=== PATIENT | male | born 1975 | race African-American/Black ===

== ENCOUNTER 2016-07-16 18:06 | Emergency (ER) | payer OTHER ==
[2016-07-16 18:12] VITALS: BP 137/67; PULSE 62; TEMP 97.9; BMI 24.7
[2016-07-16] MEDS ORDERED: IBUPROFEN 400 MG TABLET (FP) PO ONE ×2 (18:57→19:01)
--- NOTE | 2016-07-16 18:57 | PDOC ---
History of Present Illness <Mee Nuñez - Last Filed: 07/16/16 19:01> - General History Source: Patient Exam Limitations: No Limitations - History of Present Illness Initial Comments: 07/16/16 18:57 The patient is a 40 year old male, with no significant past medical history who presents to the emergency department with chest pain and toes numbness for 6 months. He reports his chest pain is intermittent and has been getting progressively worse. He describes his pain as a burning sensation. He reports mostly feeling the pain when he wakes up in the morning, and denies feeling the pain when he works out in the gym. The patient also has chief complaints of toe numbness. He denies any toe pain. He denies any recent fevers, chills, headache or dizziness. He denies any recent nausea, vomit, diarrhea or constipation. He denies any shortness of breath. Allergies: NKA Past surgical history: None reported Social History: Nonsmoker. Denies EtOH and drug use. Family History: Diabetes (paternal) <Nick Hood - Last Filed: 07/16/16 19:07> - General Chief Complaint: Pain, Acute Stated Complaint: CHEST PAIN AND TOE NUMBNESS X 6MNTH Time Seen by Provider: 07/16/16 18:14 Past History - Past Medical History Other medical history: DENIES - Psycho/Social/Smoking Cessation Hx Anxiety: No Suicidal Ideation: No Smoking History: Never smoked Hx Alcohol Use: No Drug/Substance Use Hx: No Substance Use Type: None <Mee Nuñez - Last Filed: 07/16/16 19:01> <Nick Hood - Last Filed: 07/16/16 19:07> - Past Medical History Allergies/Adverse Reactions: Allergies Allergy/AdvReac Type Severity Reaction Status Date / Time No Known Allergies Allergy Verified 07/16/16 18:08 Home Medications: Ambulatory Orders Valacyclovir HCl [Valtrex -] 500 mg PO BID #6 tablet 12/08/15 Review of Systems - Review of Systems Constitutional: No: Symptoms Reported HEENTM: No: Symptoms Reported Respiratory: No: Symptoms reported Cardiac (ROS): Yes: Chest Pain ABD/GI: No: Symptoms Reported : No: Symptoms Reported Musculoskeletal: No: Symptoms Reported Integumentary: No: Symptoms Reported Neurological: Yes: Numbness (toe) Psychiatric: No: Anxiety, Depression Endocrine: No: Symptoms Reported <Nick Hood - Last Filed: 07/16/16 19:07> *Physical Exam - Vital Signs Last Vital Signs Temp Pulse Resp BP Pulse Ox 97.9 F 62 18 137/67 100 07/16/16 18:07 07/16/16 18:07 07/16/16 18:07 07/16/16 18:07 07/16/16 18:07 <Mee Nuñez - Last Filed: 07/16/16 19:01> - Vital Signs Last Vital Signs Temp Pulse Resp BP Pulse Ox 97.9 F 62 18 137/67 100 07/16/16 18:07 07/16/16 18:07 07/16/16 18:07 07/16/16 18:07 07/16/16 18:07 - Physical Exam General Appearance: Yes: Nourished, Appropriately Dressed HEENT: positive: EOMI, LATONIA, Normal ENT Inspection Neck: positive: Supple Respiratory/Chest: positive: Chest Tender (On palpation at left pectoral and left costochondral ), Lungs Clear, Normal Breath Sounds Cardiovascular: positive: Regular Rhythm, Regular Rate Gastrointestinal/Abdominal: positive: Normal Bowel Sounds, Soft Musculoskeletal: positive: Normal Inspection Extremity: positive: Normal Capillary Refill, Normal Inspection, Normal Range of Motion Integumentary: positive: Normal Color, Dry, Warm Neurologic: positive: maintenance of way supervisor II-XII NML intact, Fully Oriented, Alert, Normal Mood/ Affect, Normal Response, Motor Strength 5/5 <Nick Hood - Last Filed: 07/16/16 19:07> Heart Score/ECG Review - ECG Impressions Comment:: 07/16/16 19:07 Sinus rhythm at 60 bpm LVH <Nick Hood - Last Filed: 07/16/16 19:07> *DC/Admit/Observation/Transfer - Discharge Dispostion Admit: No <Mee Nuñez - Last Filed: 07/16/16 19:01> - Attestations Scribe Attestion: 07/16/16 18:59 Documentation prepared by Nick Hood, acting as medical transcriber for Mee Nuñez MD. <Nick Hood - Last Filed: 07/16/16 19:07> Diagnosis at time of Disposition: Atypical chest pain, Costochondritis - Discharge Dispostion Disposition: HOME Condition at time of disposition: Stable - Patient Instructions Printed Discharge Instructions: DI for Costochondritis Additional Instructions: Motrin for pain, follow up with PMD
--- NOTE | 2016-07-17 13:57 | EKG ---
Test Reason : Blood Pressure : / mmHG Vent. Rate : 060 BPM Atrial Rate : 060 BPM P-R Int : 208 ms QRS Dur : 084 ms QT Int : 392 ms P-R-T Axes : -03 061 006 degrees QTc Int : 392 ms POOR DATA QUALITY, INTERPRETATION MAY BE ADVERSELY AFFECTED NORMAL SINUS RHYTHM NON-SPECIFIC INTRA-VENTRICULAR CONDUCTION BLOCK VOLTAGE CRITERIA FOR LEFT VENTRICULAR HYPERTROPHY NO PREVIOUS ECGS AVAILABLE Confirmed by MD FREDDIE, VALENTIN ([id number]) on 07/17/2016 1:57:25 PM Referred By: MD CONNER Confirmed By:VALENTIN FRAZIER MD
== END 2016-07-16 19:00 | disposition home or self-care (01) ==
LOC: FER 18:06
DX: R07.89 Other chest pain (principal); M94.0 Chondrocostal junction syndrome [Tietze]
CPT/HCPCS: 93005; 93010; 99282-25

== ENCOUNTER 2017-01-28 23:43 | Emergency (ER) | payer OTHER ==
[2017-01-28 23:49] VITALS: TEMP 98.3; BMI 23.7
--- NOTE | 2017-01-29 00:05 | PDOC ---
History of Present Illness - General Chief Complaint: Chest Pain Stated Complaint: CHEST PAIN Time Seen by Provider: 01/28/17 23:49 - History of Present Illness Initial Comments: This 41-year-old man with no significant past medical history presents with 2 day history of left-sided anterior chest pain. Patient states that pain began when he was at rest and has continued for the last 2 days. He states that the pain is worse when he is sitting; otherwise, he has no increase with activity or deep breathing. Pain does not change with movement of his arms. He has had no diaphoresis/nausea/shortness of breath. Patient had similar pain approximately 6 months ago and was seen here. At that time, however, his chest wall was tender and the pain resolved over several days. Patient has no significant risk factors for coronary artery disease: Nonsmoker/ no history of hypertension, diabetes mellitus, hyperlipidemia/no family history of coronary artery disease. He denies lower extremity pain or edema; he has had no recent surgery or prolonged decrease in activity. Patient has a general physician whose name he cannot recall: [facility] the [place] Past History - Past Medical History Allergies/Adverse Reactions: Allergies Allergy/AdvReac Type Severity Reaction Status Date / Time No Known Allergies Allergy Verified 07/16/16 18:08 Home Medications: Ambulatory Orders NK [No Known Home Medication] 01/29/17 - Suicide/Smoking/Psychosocial Hx Smoking History: Never smoked Have you smoked in the past 12 months: No Number of Cigarettes Smoked Daily: 0 Information on smoking cessation initiated: No Hx Alcohol Use: No Drug/Substance Use Hx: No Substance Use Type: None Review of Systems - Review of Systems Able to Perform ROS?: Yes Comments:: 12 point review of systems is negative except for what is noted in the history of present illness *Physical Exam - Vital Signs Last Vital Signs Temp Pulse Resp BP Pulse Ox 98.3 F 70 14 125/72 100 01/28/17 23:44 01/29/17 01:39 01/28/17 23:44 01/28/17 23:44 01/29/17 01:39 - Physical Exam Comments: GENERAL: HEAD: Normal with no signs of trauma. EYES: PERRLA, EOMI, sclera anicteric, conjunctiva clear. ENT: Ears normal, nares patent, oropharynx clear without exudates. Dry mucous membranes. NECK: Normal range of motion, supple without lymphadenopathy, JVD, or masses. LUNGS: Breath sounds equal, clear to auscultation bilaterally. No wheezes, and no crackles. CHEST WALL: No tenderness, step offs or crepitus palpated HEART:Regular rate and rhythm, normal S1 and S2 without murmur, rub or gallop. ABDOMEN:.normal bowel sounds No guarding,tenderness or rebound.No masses No distention. EXTREMITIES: Normal range of motion, no edema. No clubbing or cyanosis. No erythema, or tenderness. NEUROLOGICAL: Cranial nerves II through XII grossly intact. Normal speech. No focal neurological deficits. MUSCULOSKELETAL: Back non-tender to palpation, no CVA tenderness SKIN: Warm, Dry, normal turgor, no rashes or lesions noted. 12-lead electrocardiogram is performed and this shows sinus bradycardia at 54 bpm. OH interval is slightly prolonged at 220ms. Otherwise, intervals, wave forms and axis are all normal. No acute ST or T-wave abnormalities are seen. Patient's previous EKG of 07/16/16 for similar with ventricular rate of 60 bpm; OH interval is 208ms. Heart Score/ECG Review - History History: Slightly suspicious - Electrocardiogram EKG: Normal - Age Age: </= 45 - Risk Factors Based on the list above the patient has:: No risk factors known - Troponin Troponin: 1-3x normal limit - Score Heart Score - Total: 1 ED Treatment Course - LABORATORY CBC & Chemistry Diagram: 01/29/17 01:35 01/29/17 01:35 - ADDITIONAL ORDERS Additional order review: Laboratory Results 01/29/17 01/29/17 01:35 01:35 Sodium 140 Potassium 4.2 Chloride 103 Carbon Dioxide 31 Anion Gap 6 L BUN 14 Creatinine 1.1 Creat Clearance w eGFR > 60 Random Glucose 121 H Calcium 8.7 Total Bilirubin 0.4 AST 29 ALT 42 Alkaline Phosphatase 83 Creatine Kinase 314 H Creatine Kinase Index CK-MB (CK-2) < 1.000 Troponin I 0.07 H Total Protein 6.6 Albumin 3.9 01/29/17 01:35 RBC 4.26 MCV 92.3 MCHC 35.0 RDW 12.2 MPV 7.5 Neutrophils % 35.6 L Lymphocytes % 52.2 H Monocytes % 8.4 Eosinophils % 3.6 Basophils % 0.2 - Medications Given in the ED: ED Medications Discontinued Medications Generic Name Dose Route Start Last Admin Trade Name Clare PRN Reason Stop Dose Admin Ketorolac Tromethamine 30 mg 01/29/17 02:13 01/29/17 02:18 Toradol Injection - IVPUSH 01/29/17 02:14 30 mg ONCE ONE Administration Progress Note - Progress Note Progress Note: This 41-year-old man presents with 2 day history of left anterior chest pain, nonexertional and unchanging in that period of time except for increased pain with sitting. He has no significant associated symptoms and no risk factors for coronary artery disease. Exam is normal without abnormal findings on auscultatory exam of his lungs and no chest wall tenderness. Although patient had no risk factors for coronary artery disease, laboratory evaluation including cardiac enzymes were drawn because there is no clear etiology of his chest pain and myocardial ischemia/infarct should be ruled out. Patient given Toradol 30 mg IV Medical Decision Making - Medical Decision Making Patient reported partial relief of his pain after Toradol IV. Laboratory evaluation showed unremarkable CBC. Chemistry profile, likewise showed no significant abnormality. Cardiac enzymes however showed troponin of 0.07 (slightly higher than normal 0.05) total CK was 314 with CK-MBs of less than 1. Repeat troponin level will be taken at 0730 (6 hours after first level). 01/29/17 06:58 Case discussed with at end of shift. *DC/Admit/Observation/Transfer - Discharge Dispostion Condition at time of disposition: Good
[2017-01-29] MEDS ORDERED: KETOROLAC TROMETHAMINE 30 MG/1 ML VIAL IVPUSH ONE (02:13)
[2017-01-29] MEDS ORDERED: KETOROLAC TROMETHAMINE 30 MG/1 ML VIAL ONE (02:19)
[2017-01-29 02:21] LABS: BASOPHIL 0.2 % (0-2.0); EOSINOPHIL 3.6 % (0-4.5); MCH 32.3 pg (25.7-33.7); MEAN CELL VOLUME 92.3 fl (80-96); MEAN PLT VOLUME 7.5 fl (7.5-11.1); NEUTROPHILS 35.6 % (42.8-82.8); PLATELET COUNT 160 K/MM3 (134-434); RDW 12.2 % (11.9-15.9)
[2017-01-29 02:39] LABS: ALBUMIN 3.9 g/dl (3.4-5.0); ALK PHOS 83 U/L (45-117); ANION GAP 6 (8-16); BILIRUBIN,TOTAL 0.4 mg/dL (0.2-1.0); CALCIUM 8.7 mg/dL (8.5-10.1); CO2 31 mmol/L (21-32); CREATININE 1.1 mg/dL (0.7-1.3); GLUCOSE,RANDOM 121 mg/dL (74-106); SGOT/AST 29 U/L (15-37); SGPT/ALT 42 U/L (12-78); TOT PROT 6.6 g/dl (6.4-8.2)
[2017-01-29 02:42] LABS: CPK 314 IU/L (39-308); TROPONIN I 0.07 ng/ml (0.00-0.05)
[2017-01-29 08:41] LABS: TROPONIN I (DFP) 0.03 ng/ml (0.03-0.50)
[2017-01-29 08:46] VITALS: BP 107/71; PULSE 62
--- NOTE | 2017-01-29 08:47 | PDOC ---
*Physical Exam - Vital Signs Last Vital Signs Temp Pulse Resp BP Pulse Ox 98.3 F 56 L 16 111/70 100 01/28/17 23:44 01/29/17 07:47 01/29/17 07:47 01/29/17 07:47 01/29/17 07:47 ED Treatment Course - LABORATORY CBC & Chemistry Diagram: 01/29/17 01:35 01/29/17 01:35 - ADDITIONAL ORDERS Additional order review: Laboratory Results 01/29/17 01/29/17 01/29/17 07:30 01:35 01:35 Sodium 140 Potassium 4.2 Chloride 103 Carbon Dioxide 31 Anion Gap 6 L BUN 14 Creatinine 1.1 Creat Clearance w eGFR > 60 Random Glucose 121 H Calcium 8.7 Total Bilirubin 0.4 AST 29 ALT 42 Alkaline Phosphatase 83 Creatine Kinase 265 314 H Creatine Kinase Index 0.4 CK-MB (CK-2) 1.1 < 1.000 Troponin I 0.03 0.07 H Total Protein 6.6 Albumin 3.9 01/29/17 01:35 RBC 4.26 MCV 92.3 MCHC 35.0 RDW 12.2 MPV 7.5 Neutrophils % 35.6 L Lymphocytes % 52.2 H Monocytes % 8.4 Eosinophils % 3.6 Basophils % 0.2 - Medications Given in the ED: ED Medications Discontinued Medications Generic Name Dose Route Start Last Admin Trade Name Clare PRN Reason Stop Dose Admin Ketorolac Tromethamine 30 mg 01/29/17 02:13 01/29/17 02:18 Toradol Injection - IVPUSH 01/29/17 02:14 30 mg ONCE ONE Administration Medical Decision Making - Medical Decision Making 01/29/17 08:45 Patient signed out to me by Dr. Fisher as atypical chest pain pending a second set of cardiac enzymes. Second set is negative, patient now has no complaints. Will discharge home with follow up with his PMD. *DC/Admit/Observation/Transfer Diagnosis at time of Disposition: Atypical chest pain - Discharge Dispostion Disposition: HOME Condition at time of disposition: Good Admit: No - Patient Instructions Printed Discharge Instructions: DI for Atypical Chest Pain Additional Instructions: return immediately to the ED for severe chest pain or shortness of breath, new or worsening symptoms.
--- NOTE | 2017-01-29 09:33 | EKG ---
Test Reason : Blood Pressure : / mmHG Vent. Rate : 054 BPM Atrial Rate : 054 BPM P-R Int : 220 ms QRS Dur : 086 ms QT Int : 396 ms P-R-T Axes : -06 053 005 degrees QTc Int : 375 ms SINUS BRADYCARDIA WITH 1ST DEGREE A-V BLOCK MODERATE VOLTAGE CRITERIA FOR LVH, MAY BE NORMAL VARIANT BORDERLINE ECG WHEN COMPARED WITH ECG OF 16-JUL-2016 18:49, NO SIGNIFICANT CHANGE WAS FOUND Confirmed by MELIZA WARREN MD ([id number]) on 01/29/2017 9:33:09 AM Referred By: MD MARTE Confirmed By:MELIZA WARREN MD
== END 2017-01-29 08:55 | disposition home or self-care (01) ==
LOC: FER 23:43
PROC: 3E0333Z Introduction of Anti-inflammatory into Peripheral Vein, Percutaneous Approach (ICD-10-PCS; principal; 2017-01-28)
DX: R07.89 Other chest pain (principal)
CPT/HCPCS: 36415; 80053; 82553; 84484; 85025; 93005; 99285-25

== ENCOUNTER 2018-01-01 23:57 | Emergency (ER) | payer OTHER ==
[2018-01-02 00:55] VITALS: BP 120/77; PULSE 80; TEMP 98.6; BMI 24.3
[2018-01-02] MEDS ORDERED: CIPROFLOXACIN 500 MG TABLET (RESTRICTED TO ID) PO ONE (01:03)
[2018-01-02] MEDS ORDERED: CIPROFLOXACIN 250 MG TABLET (RESTRICTED TO ID) PO ONE (01:05)
--- NOTE | 2018-01-02 01:07 | PDOC ---
History of Present Illness - General Chief Complaint: Diarrhea Stated Complaint: DIARRHEA Time Seen by Provider: 01/02/18 00:35 - History of Present Illness Initial Comments: This otherwise healthy 42-year-old man presents with a 24-hour history of diarrhea. Patient returned from [place] yesterday(12/31); since then, he is had multiple ("at least 20") episodes of watery diarrhea. He has had subjective fever/chills and intermittent abdominal cramping but denies blood or mucus in the stools. He had no known sick contacts. No unusual food ingestion. No previous history of gastrointestinal issues. He denies nausea/vomiting and states he has been able to drink fluids without difficulty (he states that he has been drinking Pedialyte). He has not used any antidiarrheal agents such as Imodium or Pepto-Bismol. Past History - Past Medical History Allergies/Adverse Reactions: Allergies Allergy/AdvReac Type Severity Reaction Status Date / Time No Known Allergies Allergy Verified 07/16/16 18:08 Home Medications: Ambulatory Orders Ciprofloxacin [Cipro (Restricted To Id)] 500 mg PO Q12H #6 tablet 01/02/18 COPD: No - Suicide/Smoking/Psychosocial Hx Smoking History: Never smoked Have you smoked in the past 12 months: No Number of Cigarettes Smoked Daily: 0 Hx Alcohol Use: No Drug/Substance Use Hx: No Substance Use Type: None Review of Systems - Review of Systems Able to Perform ROS?: Yes Comments:: 12 point review of systems is negative except for what is noted in the history of present illness *Physical Exam - Vital Signs Last Vital Signs Temp Pulse Resp BP Pulse Ox 98.6 F 80 18 120/77 99 01/01/18 23:58 01/01/18 23:58 01/01/18 23:58 01/01/18 23:58 01/01/18 23:58 - Physical Exam Comments: GENERAL: Adult male, alert and oriented 3, no acute distress HEAD: Normal with no signs of trauma. EYES: PERRLA, EOMI, sclera anicteric, conjunctiva clear. ENT: Ears normal, nares patent, oropharynx clear without exudates. Dry mucous membranes. NECK: Normal range of motion, supple without lymphadenopathy, JVD, or masses. LUNGS: Breath sounds equal, clear to auscultation bilaterally. No wheezes, and no crackles. HEART:Regular rate and rhythm, normal S1 and S2 without murmur, rub or gallop. ABDOMEN:.normal bowel sounds No guarding,tenderness or rebound.No masses No distention. EXTREMITIES: Normal range of motion, no edema. No clubbing or cyanosis. No erythema, or tenderness. NEUROLOGICAL: Cranial nerves II through XII grossly intact. Normal speech. No focal neurological deficits. MUSCULOSKELETAL: Back non-tender to palpation, no CVA tenderness SKIN: Warm, Dry, normal turgor, no rashes or lesions noted. Progress Note - Progress Note Progress Note: This otherwise healthy 42-year-old man presents with a one-day history of multiple episodes of watery diarrhea. He has just returned from [place]; no known sick contacts or unusual foods/water ingestion that would predict diarrheal illness. No previous gastrointestinal issues. Exam notable for normal vital signs without tachycardia or hypotension. His mucous membranes are dry but he has no significant abdominal tenderness or hyperactive bowel sounds. Because the patient has been traveling and has had 24 hours of significant diarrhea, he will be started on Cipro 500 mg twice a day for 3 days. First dose of ciprofloxacin 500 mg given here in the ER. Remainder of the prescription sent to his pharmacy. Meanwhile, the patient should continue to give plenty of clear liquids (either Pedialyte or water). He should also consider using anti-diarrheal agents such as Imodium or Pepto-Bismol. He should return or see his doctor if he has blood or mucus in the stool or if he develops nausea/vomiting and cannot keep up his hydration. Also, he should follow-up with his PMD if diarrhea lasts for more than 5 days. *DC/Admit/Observation/Transfer Diagnosis at time of Disposition: Travelers' diarrhea - Discharge Dispostion Disposition: HOME Condition at time of disposition: Stable - Prescriptions Prescriptions: Ciprofloxacin [Cipro (Restricted To Id)] 500 mg PO Q12H #6 tablet - Referrals - Patient Instructions Printed Discharge Instructions: Diarrhea Additional Instructions: Continue drinking plenty of fluids Cipro 500 mg twice a day for 3 days Consider Imodium or Pepto-Bismol as discussed Return to ER or see your doctor if you have fever/vomiting/ pain/blood in stool - Post Discharge Activity
== END 2018-01-02 01:10 | disposition home or self-care (01) ==
LOC: FER 23:57
DX: A08.8 Other specified intestinal infections (principal)
CPT/HCPCS: 99281-25

== ENCOUNTER 2018-10-17 15:23 | Emergency (ER) | payer OTHER | END 2018-10-17 18:08 | disposition home or self-care (01) | LOC: FER 15:23 ==

== ENCOUNTER 2024-01-15 08:31 | Emergency (ER) | payer OTHER ==
[2024-01-15 08:55] VITALS: BP 123/84; PULSE 64; RESP 16; TEMP 98.2; BMI 23.6
[2024-01-15] MEDS ORDERED: IBUPROFEN 400 MG TABLET (FP) PO ONE (09:48)
[2024-01-15] MEDS ORDERED: LIDOCAINE 5% TOPICAL PATCH ONE (09:48)
[2024-01-15] MEDS: LIDOCAINE 5% TOPICAL PATCH TP ONE (09:54)
[2024-01-15] MEDS: IBUPROFEN 400 MG TABLET (FP) PO ONE (09:54)
[2024-01-15] MEDS ORDERED: LIDOCAINE PATCH REMOVAL MC ONE (22:00)
== END 2024-01-15 10:09 | disposition home or self-care (01) ==
LOC: FER 08:31
DX: M54.50 Low back pain, unspecified (principal)
CPT/HCPCS: 81003; 87086; 99283-25